=== PATIENT | female | born 1970 | race Caucasian/White ===

== ENCOUNTER 2022-02-07 17:53 | Emergency (ER) | payer BC ==
[~2022-02-07] VITALS: Ht 165.1 cm; Wt 55.3 kg
[2022-02-07] MEDS ORDERED: ONDANSETRON 4 MG/2 ML VIAL IV ONE (18:15)
[2022-02-07] MEDS ORDERED: MORPHINE SULFATE 2 MG/1 ML DISP.SYRIN IV ONE (18:15)
[2022-02-07 18:36] LABS: HEMATOCRIT 44.6 % (31.2-41.9); MEAN CORPUSCULAR VOLUME 96.9 fL (75.5-95.3); PLATELET COUNT (AUTO) 233 K/uL (179-408)
[2022-02-07 18:44] LABS: BILIRUBIN,DIRECT 0.2 mg/dL (0.0-0.2); BILIRUBIN,TOTAL 0.5 mg/dL (0.2-1.0); CREATININE 0.9 mg/dL (0.6-1.3); POTASSIUM 3.4 mmol/L (3.5-5.1); TOTAL PROTEIN, SERUM 6.7 g/dL (6.4-8.2)
[2022-02-07] MEDS ORDERED: SWABABLE VALVE TRANSFER SET EA MC ONE (19:01)
[2022-02-07] MEDS ORDERED: IOHEXOL 300MG/ML 100 ML INFUS..BTL ONE (19:01)
[2022-02-07] MEDS ORDERED: IV NORMAL SALINE 250 ML IV ONE (19:01)
--- NOTE | 2022-02-07 19:20 | NUR ---
Report received from Ramakrishna PACHECO.
[2022-02-07] MEDS ORDERED: PROC10TA29 PO (19:46)
[2022-02-07] MEDS ORDERED: OXYC-128 PO (19:46)
--- NOTE | 2022-02-07 20:04 | NUR ---
Patient discharged to home in stable condition. Written and verbal after care instructions given. Patient verbalizes understanding of instructions. Stressed follow up or return to ER for worsening s/s. Patient out of ER with steady gait, no acute signs of distress, VSS, all belongings taken, provided with copies of lab and ultrasound results.
[2022-02-07 20:05] VITALS: BP 105/39
== END 2022-02-07 20:05 | disposition home or self-care (01) ==
LOC: ER 17:53
DX: R10.31 Right lower quadrant pain (principal); Z85.828 Personal history of other malignant neoplasm of skin; E87.20 Acidosis, unspecified; D75.89 Other specified diseases of blood and blood-forming organs
CPT/HCPCS: 36415; 76857; 83605; 83690; 85025; A4663; Q9967